=== PATIENT | male | born 1980 | race American Indian/Alaskan Native ===

== ENCOUNTER 2017-07-10 15:58 | Emergency (ER) | payer OTHER ==
[2017-07-10] MEDS ORDERED: ULTRAM PO ONE (20:13)
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
[2017-07-10 21:06] VITALS: BP 163/94
== END 2017-07-10 21:05 | disposition home or self-care (01) ==
LOC: ED 15:58
DX: S80.811A Abrasion, right lower leg, initial encounter (principal); L03.115 Cellulitis of right lower limb; I10 Essential (primary) hypertension; V87.8XXA Person injured in other specified noncollision transport accidents involving motor vehicle (traffic), initial encounter; Y93.89 Activity, other specified; Y92.89 Other specified places as the place of occurrence of the external cause; Y99.8 Other external cause status
CPT/HCPCS: 99282